=== PATIENT | female | born 1975 | race African-American/Black ===

== ENCOUNTER 2017-02-14 18:52 | Emergency (ER) | payer BC ==
--- NOTE | ~2017-02-14 | ER ---
PATIENT'S NAME: JOHANN TOWNSEND [facility] AGE: 41 Y [address] ROOM: [place] [address] LOCATION: [facility] ADMIT DATE: 02/14/2017 ER/Outpatient Report DISCHARGE DATE: 02/14/2017 FAMILY PHYSICIAN: PHYSICIAN, NO ATTENDING PHYSICIAN: José Alvarez Admission date and time documented on medical record. I saw the patient at 1905 hours. CHIEF COMPLAINT: Lower abdominal pain. HISTORY OF PRESENT ILLNESS: The patient is a 41-year-old female who presented to the emergency room with lower abdominal pain. This started around 0900 hours this morning. Tugging type of pain, radiates around to her lower back. No epigastric pain. No chest pain or shortness of breath. Did have some nausea with 1 episode of vomiting. No diarrhea. Small bowel movement today, that was soft. She has had constipation off and on. No urinary frequency, urgency, or dysuria. No fall or trauma. No recent colds, coughs, flus, fever, chills, or sweats. No lightheadedness, dizziness, syncope, or near syncope. No headache; eyes, ears, nose, throat, neck, or spine pain. No skin eruptions or rash. No joint or muscle swelling, redness, or pain. No history of endocrine problems, neuro changes, or psych issues. HOME MEDICATIONS: See attached medication list. ALLERGIES: NONE. SOCIAL HISTORY: Nonsmoker. Occasional intake of alcohol. SIGNIFICANT PAST MEDICAL HISTORY: Hypertension, constipation, and renal insufficiency. OPERATIONS: Cholecystectomy, hysterectomy, and left foot surgery. REVIEW OF SYSTEMS: All systems reviewed by me are negative with the exception of those discussed in the history of present illness. PHYSICAL EXAMINATION: PATIENT'S NAME: JOHANN TOWNSEND [facility] AGE: 41 Y [address] ROOM: [place], [place] [address] LOCATION: [facility] ADMIT DATE: 02/14/2017 ER/Outpatient Report DISCHARGE DATE: 02/14/2017 FAMILY PHYSICIAN: PHYSICIAN, NO ATTENDING PHYSICIAN: José Alvarez VITAL SIGNS: Temperature 96.5 tympanic, pulse 83, respirations 16, blood pressure 136/90, and O2 saturation room air is 96%. HEAD: Normocephalic. EYES, EARS, NOSE, THROAT: Clear. Mucous membranes little dry. NECK: No nuchal rigidity. No thyromegaly or cervical adenopathy. SPINE: Negative. LUNGS: Clear. Good air flow. No rales, rhonchi, or wheezes. HEART: Regular. Pulses are palpable. ABDOMEN: Obese soft, nondistended, tender lower abdomen. Decreased bowel tones. No organomegaly or abnormal mass palpable. No CVA tenderness. EXTREMITIES: Intact. NEUROVASCULAR: Intact. SKIN: Clear. LABORATORY DATA AND DIAGNOSTIC DATA: Urine was clear. White count 6800, 65 segs, 27 lymphs, 5 monos, 3 eos; hemoglobin is 13.2; hematocrit 40.6; and platelet count 327,000. CMS was normal except for a slight low potassium of 3.4, elevated glucose of 113, elevated creatinine 1.2, and low GFR of 49. Amylase lipase were normal. CRP was 0.73. Three-view abdominal x-ray shows no perforation, obstruction, or acute lung infiltrate. Did have increased stool pattern consistent with constipation. We will review x-ray with the radiologist. IMPRESSION: Low abdominal pain with some radiating to the low back, etiology uncertain, maybe related to constipation. I see no evidence of urinary tract problems with normal urine. She has not distended, does not have a surgical abdomen. Three-view abdominal x-ray was normal. I was hesitant to do any type of scanning with her renal insufficiency and our inability to get an IV in this lady. PLAN: The patient was given fentanyl 50 mcg IM in the emergency room, Phenergan 50 mg IM in the emergency room, Dulcolax tablets 2 orally in the emergency room. Discharged home. Observation. Activity as tolerated. Continue present home medications and care. Clear liquid diet for 24 hours. Increase hydration. One bottle of magnesium citrate orally at home tonight. Follow up with personal physician as needed or no improvement. Discussion ensued with the patient concerning my findings and recommendations, she understands. JOSÉ ALVAREZ MD PATIENT'S NAME: JOHANN TOWNSEND [facility] AGE: 41 Y [address] ROOM: [place] [address] LOCATION: [facility] ADMIT DATE: 02/14/2017 ER/Outpatient Report DISCHARGE DATE: 02/14/2017 FAMILY PHYSICIAN: DANIEL LO ATTENDING PHYSICIAN: José Alvarez/mari /[id number] d: 02/15/172 t: 02/15/17 1822, OUTPATIENT REPORT
[2017-02-14 19:19] LABS: BASOPHIL % 0.3 %; EOSINOPHIL # 0.2 K/uL (0.0-0.5); EOSINOPHIL % 2.5 %; HEMATOCRIT 40.6 % (33.0-46.0); HEMOGLOBIN 13.2 g/dL (10.0-15.0); IMMATURE GRANULOCYTE % 0.1 %; LYMPHOCYTE # 1.9 K/uL (0.8-4.0); LYMPHOCYTE % 27.3 %; MCH 30.2 pg (27.0-34.0); MCHC 32.5 gm/dL (32.0-36.5); MCV 92.9 fl (83.0-98.0); MONOCYTE # 0.3 K/uL (0.0-1.0); MONOCYTE % 4.8 %; MPV 9.3 fl (9.4-12.4); NEUTROPHIL # (ANC) 4.4 K/uL (1.8-7.8); NRBC % 0 /100WBC (0-0.00); PLATELET COUNT 327 K/uL (150-450); RBC 4.37 M/uL (3.50-5.50); RDW-CV 15.4 % (11.9-14.6); WBC 6.8 K/uL (4.0-11.0)
[2017-02-14 19:22] LABS: BILIRUBIN URINE NEGATIVE (NEGATIVE); BLOOD URINE NEGATIVE /UL (NEGATIVE); GLUCOSE URINE NEGATIVE (NEGATIVE); KETONE URINE NEGATIVE (NEGATIVE); LEUKOCYTES URINE NEGATIVE /UL (NEGATIVE); NITRITE URINE NEGATIVE (NEGATIVE); PROTEIN URINE NEGATIVE (NEGATIVE); UROBILINOGEN URINE NORMAL (NORMAL)
[2017-02-14 19:25] LABS: COLOR URINE YELLOW (YELLOW); TURBIDITY URINE CLEAR (CLEAR)
[2017-02-14 19:39] LABS: ALBUMIN 4.1 gm/dL (3.5-5.0); ANION GAP 10.5 (10.0-19.0); CALCIUM 8.9 mg/dL (8.5-10.5); CREATININE 1.2 mg/dL (0.5-1.1); POTASSIUM 3.5 mMol/L (3.7-5.1); TOTAL BILIRUBIN 0.4 mg/dL (0.0-1.5); TOTAL PROTEIN 8.8 g/dL (6.0-8.4)
== END 2017-02-14 21:00 | disposition disaster alternative care site (69) ==
LOC: GMED 18:52
PROVIDERS: Emergency Medicine
DX: R10.30 Lower abdominal pain, unspecified (principal); M54.5 Low back pain; I10 Essential (primary) hypertension; Z79.899 Other long term (current) drug therapy; Z90.49 Acquired absence of other specified parts of digestive tract; Z90.710 Acquired absence of both cervix and uterus; Z98.890 Other specified postprocedural states
CPT/HCPCS: J2405; J2550; J3010; J7030